=== PATIENT | female | born 1995 | race African-American/Black ===

== ENCOUNTER 2017-03-22 20:58 | Emergency (ER) | payer MEDICAID ==
[~2017-03-22] VITALS: Ht 170.2 cm; Wt 77.0 kg
[2017-03-23] MEDS ORDERED: IBUPROFEN 600MG TABLET PO ONE (01:15)
[2017-03-23 01:18] VITALS: BP 120/78
== END 2017-03-23 02:05 | disposition home or self-care (01) ==
LOC: ER 20:58
DX: M25.571 Pain in right ankle and joints of right foot (principal); M25.511 Pain in right shoulder; Z88.8 Allergy status to other drugs, medicaments and biological substances; V89.2XXA Person injured in unspecified motor-vehicle accident, traffic, initial encounter; Y93.89 Activity, other specified; Y92.89 Other specified places as the place of occurrence of the external cause; Y99.8 Other external cause status
CPT/HCPCS: 73030; 73610; 81025; 99284; A4565

== ENCOUNTER 2018-11-29 22:13 | Emergency (ER) | payer MEDICAID ==
[~2018-11-29] VITALS: Ht 170.2 cm; Wt 70.0 kg
[2018-11-29] MEDS ORDERED: IBUPROFEN 600MG TABLET PO ONE (22:45)
[2018-11-29 23:03] VITALS: BP 123/76
== END 2018-11-29 23:05 | disposition home or self-care (01) ==
LOC: ER 22:13
DX: R07.89 Other chest pain (principal); Z88.8 Allergy status to other drugs, medicaments and biological substances; V49.88XA Car occupant (driver) (passenger) injured in other specified transport accidents, initial encounter; Y93.89 Activity, other specified; Y92.89 Other specified places as the place of occurrence of the external cause; Y99.8 Other external cause status
CPT/HCPCS: 99283